=== PATIENT | male | born 1945 ===

== ENCOUNTER → 2021-02-03 | Outpatient (CLI) | payer OTHER | END | disposition home or self-care (01) | LOC: PPH VACUNA | PROVIDERS: ATTEND Emergency Medicine Pediatric Emergency Medicine | DX: Z23 Encounter for immunization (principal) ==

== ENCOUNTER 2021-02-24 14:24 | Outpatient (CLI) | payer OTHER | END 2021-02-24 14:25 | disposition home or self-care (01) | LOC: PPH VACUNA 14:24 | PROVIDERS: ATTEND Emergency Medicine Pediatric Emergency Medicine | DX: Z23 Encounter for immunization (principal) ==